=== PATIENT | female | born 1980 | race Two or more races ===

== ENCOUNTER 2024-08-07 06:37 | Emergency (ER) | payer OTHER ==
[~2024-08-07] VITALS: Ht 165.1 cm; Wt 81.6 kg
[2024-08-07] MEDS ORDERED: TOPROL XL100 M1 PO (07:35)
[2024-08-07] MEDS ORDERED: LOSARTAN POTAS100 MG PO (07:35)
[2024-08-07] MEDS ORDERED: VANCOMYCIN HCL 1,000 MG VIAL ONE (08:35)
[2024-08-07] MEDS ORDERED: VANCOMYCIN HCL 1,000 MG VIAL IV ONE (08:45)
[2024-08-07 09:16] LABS: HEMATOCRIT 43.5 % (36.0-45.00); MEAN CELL VOLUME 91.5 fL (80.00-100.00); MEAN CORPUSCULAR HEMOGLOBIN 31.5 pg (27.00-32.0); MEAN CORPUSCULAR HGB CONC 34.4 g/dl (32.0-36.0); PLATELET COUNT 190 K/uL (150-450); RED BLOOD COUNT 4.76 M/uL (4.00-6.00); RED CELL DISTRIBUTION WIDTH 13.6 % (11.5-14.5)
[2024-08-07 09:39] LABS: ALBUMIN 3.5 gm/dL (3.4-5.0); BILIRUBIN TOTAL 0.43 mg/dL (0.3-1.2); CREATININE SERUM 0.61 mg/dL (0.55-1.02); GFR 106.06; GLOBULINA 3.8 G/DL (2.4-3.5); POTASSIUM 3.74 mEq/L (3.5-5.1); TOTAL PROTEIN 7.3 gm/dL (6.4-8.2)
[2024-08-07] MEDS ORDERED: KETO10TA2 PO (09:48)
[2024-08-07] MEDS ORDERED: BACTRIM DS TAB1 EACH PO (09:48)
== END 2024-08-07 11:38 | disposition home or self-care (01) ==
LOC: ER 06:38
PROVIDERS: General Practice
DX: J06.9 Acute upper respiratory infection, unspecified (principal); Z88.8 Allergy status to other drugs, medicaments and biological substances; I10 Essential (primary) hypertension; Z20.822 Contact with and (suspected) exposure to COVID-19